=== PATIENT | male | born 1960 | race Caucasian/White ===

== ENCOUNTER 2016-06-11 15:57 | Inpatient (IN) | payer OTHER ==
[~2016-06-11] VITALS: Ht 182.9 cm; Wt 204.0 kg
[~2016-06-11 15:57] MED LIST: AMARYL1 MG PO; AMARYL2 MG PO; AMOX TR-K CLV1 EAC4 PO; ASPIR-TRIN325 M1 PO; ASPIRIN325 MG; AUGMENTIN875 MG PO; AZOR 5/40 MG1 TABLET PO; Amaryl PO; BACTRIM,SEPT1 TABLET; BENICAR HCT 401 EAC1 PO; BENICAR40 MG PO; BENZONATATE200 MG PO; Bactrim,Septra DS 80 PO; CARDIZEM SR120 MG PO; COREG6.25 M1 PO; DOXYCYCLINE MO100 MG PO; ECOTRIN325 MG PO; FEXOFENADINE H180 MG PO; FUROSEMIDE20 MG PO; Flonase BOTH NARES; GLIMEPIRIDE1 MG PO; INDOMETHACIN50 MG PO; JANUMET 50/51 TABLET PO; JANUVIA100 MG PO; METFORMIN HCL1000 MG PO; MULTAQ400 MG PO; POTASSIUM CITR10 MEQ PO; PREDNISONE10 MG PO; PROVENTIL HFA6.7 GM IH; PULMICORT FLEX90 MCG IH; TRAMADOL HCL50 MG PO; Vicodin,Norco 5/325 PO; XARELTO20 MG PO; ZYLOPRIM300 MG PO; [UNRECOGNIZED DRUG - OTHER] PO
[2016-06-11 16:38] LABS: ADD MIUA? YES; BILIRUBIN NEGATIVE; BLOOD LARGE; COLOR YELLOW ((YELLOW)); GLUCOSE (STRIP) NEGATIVE; KETONES NEGATIVE; LEUKOCYTES LARGE; NITRITE NEGATIVE; PROTEIN (STRIP) 100; SPECIFIC GRAVITY 1.014 (1.000-1.030); UROBILINOGEN 0.2 MG/DL (0.2-1.0)
[2016-06-11 16:42] LABS: HEMATOCRIT 39.7 % (38.0-50.0); MCH 27.4 PG (29.0-34.0); MCV 83.1 FL (86-99); MEAN PLAT.VOLUME 10.8 uM^3 (9.0-12.4); PLATELET COUNT 229 K/uL (156-360); RBC DIS.WIDTH-CV 13.2 % (11.8-14.6); RED BLOOD COUNT 4.78 M/uL (4.00-5.50); WHITE BLOOD COUNT 11.4 K/uL (4.1-10.2)
[2016-06-11 16:51] LABS: CHLORIDE 99 mEq/L (99-109); POTASSIUM 3.6 mEq/L (3.7-5.4); SODIUM 135 mEq/L (136-147)
[2016-06-11 16:53] LABS: GLUCOSE 164 mg/dL (70-99)
[2016-06-11 16:54] LABS: ANION GAP 11 MEQ/L (2-14)
[2016-06-11 16:55] LABS: TOTAL BILIRUBIN 1.2 mg/dL (0.0-1.0)
[2016-06-11 16:56] LABS: ALKALINE PHOSPHATASE 62 IU/L (3-129)
[2016-06-11 16:57] LABS: GFR ESTIMATE (CALCULATED) 48 mL/min/
[2016-06-11 16:58] LABS: UREA NITROGEN (BUN) 21 mg/dL (9-23)
[2016-06-11 17:01] LABS: BACTERIA 3+ /HPF; EPITHELIAL CELLS RARE /HPF; MUCUS TRACE /LPF; RED BLOOD CELLS 40-50 /HPF (0-5); WHITE BLOOD CELLS 15-20 /HPF (0-5)
[2016-06-11 17:16] LABS: LIPASE 61 U/L (1.0-51.0)
[2016-06-11] MEDS ORDERED: LIPITOR20 MG PO (20:01)
[2016-06-11 21:22] VITALS: BP 138/78
[2016-06-12 07:54] VITALS: BP 127/60
[2016-06-12 15:48] VITALS: BP 142/67
[2016-06-12 16:53] LABS: POINT-OF-CARE METER ID UU14188625
[2016-06-13 00:35] VITALS: BP 131/66
[2016-06-13 06:36] LABS: EOSINOPHIL COUNT 0.2 K/uL (0-0.3); HEMATOCRIT 35.3 % (38.0-50.0); IMMATURE GRANULOCYTE (%) 0.6 % (0.0-0.7); IMMATURE GRANULOCYTE COUNT 0.1 K/uL; LYMPHOCYTE COUNT 1.9 K/uL (1.0-2.8); MCH 27.6 PG (29.0-34.0); MCHC 32.6 G/DL (30.0-36.0); MCV 84.7 FL (86-99); MEAN PLAT.VOLUME 10.9 uM^3 (9.0-12.4); MONOCYTE (%) 12.4 % (3-12); NEUTROPHIL (%) 61.6 % (45-76); PLATELET COUNT 166 K/uL (156-360); RBC DIS.WIDTH-CV 13.4 % (11.8-14.6); RBC DIS.WIDTH-SD 41.7 % (39-53); RED BLOOD COUNT 4.17 M/uL (4.00-5.50); WHITE BLOOD COUNT 8.1 K/uL (4.1-10.2)
[2016-06-13 07:00] LABS: ANION GAP 7 MEQ/L (2-14); CHLORIDE 99 MEQ/L (99-109); GFR ESTIMATE (CALCULATED) > 59 mL/min/; GLUCOSE 167 mg/dL (70-99); POTASSIUM 3.5 MEQ/L (3.7-5.4); SAMPLE HEMOLYSIS CHECK 0; SAMPLE ICTERIC CHECK 0; SAMPLE LIPEMIA CHECK 0; SODIUM 135 MEQ/L (136-147); UREA NITROGEN (BUN) 19 mg/dL (9-23)
[2016-06-13 08:39] VITALS: BP 139/84
[2016-06-13] MEDS ORDERED: CIPRO500 MG PO (14:03)
== END 2016-06-13 14:50 | disposition home or self-care (01) | DRG 690 ==
LOC: EME 15:57 → EDOF 19:52 → 5SOUTH 21:08
PROVIDERS: Family Medicine; Nurse Practitioner Family
DX: N10 Acute pyelonephritis (principal); B96.4 Proteus (mirabilis) (morganii) as the cause of diseases classified elsewhere; N17.9 Acute kidney failure, unspecified; I12.9 Hypertensive chronic kidney disease with stage 1 through stage 4 chronic kidney disease, or unspecified chronic kidney disease; N18.9 Chronic kidney disease, unspecified; E11.65 Type 2 diabetes mellitus with hyperglycemia; E87.6 Hypokalemia; N20.0 Calculus of kidney; I48.0 Paroxysmal atrial fibrillation; E66.01 Morbid (severe) obesity due to excess calories; Z68.44 Body mass index [BMI] 60.0-69.9, adult; M10.9 Gout, unspecified; J45.909 Unspecified asthma, uncomplicated; G47.33 Obstructive sleep apnea (adult) (pediatric); Z79.01 Long term (current) use of anticoagulants; Z79.84 Long term (current) use of oral hypoglycemic drugs
CPT/HCPCS: 74176; 80048; 80053; 81003; 82948; 83605; 83690; 85025; 85027; 87040; 87077; 87086; 87186; 94660; 99281; 99285; J0696; J1815; J7030; J7050